=== PATIENT | female | born 1990 | race Caucasian/White ===

== ENCOUNTER 2018-04-30 20:49 | Emergency (ER) | payer SELFPAY ==
[2018-04-30] MEDS ORDERED: Sodium Chloride 0.9% 1,000 ML IV ONE (22:10)
--- NOTE | 2018-04-30 22:10 | C.PDOC ---
History Of Present Illness Patient presents to the ER with a complaint of suprapubic pain that began today. Patient is unsure if she has vaginal bleeding or hematuria. Denies fever , chills, nausea, or vomiting. Time Seen by Provider: 04/30/18 22:09 Chief Complaint (Nursing): Abdominal Pain History Per: Patient History/Exam Limitations: no limitations Onset/Duration Of Symptoms: Hrs Current Symptoms Are (Timing): Still Present Severity: Moderate Pain Scale Rating Of: 4 Location Of Pain/Discomfort: Suprapubic Quality Of Discomfort: Unable To Describe Associated Symptoms: Other (Vaginal bleeding vs hematuria). denies: Fever, Chills, Nausea, Vomiting Exacerbating Factors: None Alleviating Factors: None Recent travel outside of the [place]: No Past Medical History Reviewed: Historical Data, Nursing Documentation, Vital Signs Vital Signs: Last Vital Signs Temp 98.1 F 05/01/18 02:26 Pulse 83 05/01/18 02:26 Resp 20 05/01/18 02:26 BP 107/70 05/01/18 02:26 Pulse Ox 100 05/01/18 02:26 Family History: States: No Known Family Hx - Social History Hx Alcohol Use: No Hx Substance Use: No Review Of Systems Constitutional: Negative for: Fever, Chills Cardiovascular: Negative for: Palpitations, Light Headedness Respiratory: Negative for: Cough Gastrointestinal: Positive for: Abdominal Pain. Negative for: Nausea, Vomiting Genitourinary: Positive for: Other (Questionable vaginal bleeding vs hematuria) Physical Exam - Physical Exam Appears: Non-toxic Skin: Warm, Dry Head: Normacephalic Oral Mucosa: Moist Chest: Symmetrical, No Tenderness Cardiovascular: Rhythm Regular Respiratory: No Rales, No Rhonchi, No Wheezing Gastrointestinal/Abdominal: Soft, Tenderness (Suprapubic), No Guarding, No Rebound Neurological/Psych: Oriented x3 ED Course And Treatment - Laboratory Results Result Diagrams: 04/30/18 22:20 04/30/18 22:20 O2 Sat by Pulse Oximetry: 99 (room air) Pulse Ox Interpretation: Normal Progress Note: Blood work and urinalysis ordered. IV fluids administered. Reevaluation Time: 04:07 Reassessment Condition: Improved Disposition Counseled Patient/Family Regarding: Studies Performed, Diagnosis, Need For Followup - Disposition Referrals: [facility] [Outside] [facility] [Outside] Disposition: HOME/ ROUTINE Disposition Time: 22:10 Condition: FAIR Additional Instructions: Please follow up with your director of scientific research Instructions: Threatened Miscarriage (DC) Forms: [employer] (Estonian) - Clinical Impression Clinical Impression: Threatened - Scribe Statement The provider has reviewed the documentation as recorded by the Scribe Jevon Guevara All medical record entries made by the Namnaibe were at my direction and personally dictated by me. I have reviewed the chart and agree that the record accurately reflects my personal performance of the history, physical exam, medical decision making, and the department course for this patient. I have also personally directed, reviewed, and agree with the discharge instructions and disposition.
[2018-04-30 22:15] LABS: HCG,QUALITATIVE URINE POSITIVE (NEGATIVE); SQUAMOUS EPITHIAL 1 /hpf (0-5); URINE BACTERIA RARE (<OCC); URINE BILIRUBIN NEGATIVE (NEGATIVE); URINE BLOOD 1+ (NEGATIVE); URINE CLARITY Clear (Clear); URINE COLOR Straw (YELLOW); URINE GLUCOSE (UA) NORMAL (Normal); URINE LEUKOCYTE ESTERASE NEG Leu/uL (Negative); URINE PROTEIN NEGATIVE (NEGATIVE); URINE UROBILINOGEN NORMAL mg/dL (0.2-1.0)
[2018-04-30] MEDS ORDERED: Sodium Chloride 0.9% 1,000 ML ONE (22:21)
[2018-04-30 22:31] LABS: BASO % 0.6 % (0.0-2.0); EOS # 0.2 K/uL (0.0-0.7); EOS % 3.2 % (0.0-4.0); HEMOGLOBIN 11.4 g/dL (11.0-16.0); LYMPH # 2.7 K/uL (1.0-4.3); LYMPH % 34.2 % (20.0-40.0); MEAN CELL VOLUME 83.5 fL (81.0-99.0); MEAN CORPUSCULAR HEMOGLOBIN 27.1 pg (27.0-31.0); MEAN CORPUSCULAR HGB CONC 32.4 g/dL (33.0-37.0); MEAN PLATELET VOLUME 8.7 fL (7.2-11.7); MONO # 0.6 K/uL (0.0-0.8); MONO % 7.5 % (0.0-10.0); NEUT # 4.2 K/uL (1.8-7.0); NEUT % 54.5 % (50.0-75.0); NRBC % 0.1 % (0.0-2.0); RBC 4.21 Mil/uL (3.80-5.20); RED CELL DISTRIBUTION WIDTH 15.7 % (11.5-14.5); WHITE BLOOD COUNT 7.8 K/uL (4.8-10.8)
[2018-04-30 22:41] LABS: ALB/GLOB RATIO 1.3 (1.0-2.1); ALBUMIN 4.2 g/dL (3.5-5.0); ALT/SGPT 16 U/L (9-52); AST/SGOT 26 U/L (14-36); BLOOD UREA NITROGEN 6 mg/dL (7-17); CALCIUM 9.1 mg/dl (8.6-10.4); GFR AFRICAN-AMERICAN > 60; GFR NON-AFRICAN AMERICAN > 60
[2018-05-01 02:27] VITALS: TEMP 98.1
--- NOTE | 2018-05-01 04:08 | US ---
EXAM: US First Trimester, Transabdominal US , Transvaginal CLINICAL HISTORY: 28 years old, female; Pain; complicated by abdominal or pelvic pain; Lower; First trimester; Gestational age or lmp: 03/14/18; ; Additional info: Vag bleed, hcg 1600 TECHNIQUE: Real-time transabdominal and transvaginal obstetrical ultrasound of the maternal pelvis and a first trimester with image documentation. Transvaginal imaging was used for better evaluation of the fetus and adnexa. COMPARISON: No relevant prior studies available. FINDINGS: Gestation: Single live intrauterine gestation. heart rate of 123 beats per minute. Candy Kitchen-rump length of 0.2 cm, correlating with gestational age of 5 weeks 5 days. Uterus/cervix: No subchorionic hemorrhage. Closed cervix. Ovaries: RIGHT ovary: 2.2 x 2.0 x 2.2 cm anechoic lesion. LEFT ovary: Normal. No adnexal masses. Free fluid: Trace free fluid within pelvis. IMPRESSION: 1. Single live intrauterine gestation. 2. RIGHT ovarian cyst. THIS REPORT CONTAINS FINDINGS THAT MAY BE CRITICAL TO PATIENT CARE. The findings were verbally communicated via telephone conference with MAURILIO Livingston at 4:07 AM EDT on 05/01/2018. The findings were acknowledged and understood.
[2018-05-01 04:16] VITALS: BP 105/66; PULSE 76; RESP 18; O2SAT 97
== END 2018-05-01 04:16 | disposition home or self-care (01) ==
LOC: SUPCPDRO 20:49 → C.ER 20:49
DX: O20.0 Threatened abortion (principal)
CPT/HCPCS: 76805; 76817; 80053; 81001; 84702; 84703; 85025; 86850; 86900; 96360; 99285; J7030

== ENCOUNTER 2018-11-27 10:57 | Outpatient (CLI) | payer OTHER | END 2018-11-27 10:58 | disposition home or self-care (01) | LOC: C.LAB 10:57 ==

== ENCOUNTER 2019-01-29 12:50 | Outpatient (CLI) | payer OTHER | END 2019-01-29 12:51 | disposition home or self-care (01) | LOC: C.LAB 12:50 | DX: O09.33 Supervision of pregnancy with insufficient antenatal care, third trimester (principal) ==

== ENCOUNTER 2019-03-10 10:26 | Emergency (ER) | payer OTHER ==
--- NOTE | 2019-03-10 13:21 | OBHP ---
Datetime: 03/10/2019 11:50 IP Adm Impression: Term, intrauterine IP Admit Plan: Discharge home Admit Comment, IP Provider: 28 year old at 40.0 weeks by US with SAMANTHA 03/10/19, today, present s to the OB ED with increased back pain worsening the past 4 days. Patient also had abdominal pain wi th it which has resolved. Patient states she is uncomfortable lying down in bed. She has not taken an y medications to relieve pain. The back pain is non radiating and local, which is relieved with posit ional changes. Patient has had lower abdominal pain as if someone was squeezing her belly once or twi ce an hour but not today. She feels that her lower abdomen is "heavy." Patient endorses a gradual los s of whitish discharge yesterday, though the volume is nothing out of the ordinary. She denies fluid loss, vaginal bleeding. She endorses movement. This is patient's first full term and she is unsure of the feeling of contractions though it can be the the belly squeezing mentioned earli er. Denies headaches, fever, chills, sweats, nausea, vomiting, diarrhea, constipation, dysuria. Last BM was yesterday and was uneventful. Patient had a private doctor (Dr. Ruiz) during her first part of and switched to [facility] around 30 weeks. She now sees Dr. Michelle. Last visit was 03/05. She has another visit on 03/12. OB hx: spontaneous miscarriage April 2018 at 5-6 weeks. Patient passed some clots and eventually gomes d to do a D_C. This has been uneventful other than GBS+ (per chart). Gender unknown; patien t states it will be a surprise. 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 Menses every month for 5 days. Denies hx of STIs and fibroids. Unsure of Pap smear history. LMP 06/04/18. PMHx: denies PSHx: other than D_C mentioned above, nothing else SocHx: Denies tobacco, EtOH and illicit drug use. Patient is a vegetarian. Medications: Iron PO, PNV Allergies: NKDA Vitals and PE: see above A/P: 28 year old at 40.0 weeks by US with SAMANTHA 03/10/19, today, presents to the OB ED with increa sed back pain worsening the past 4 days. -patient not in active labor: cervix closed, thick, posterior -NST reassuring -confirmed head down with bedside US -discharged home with labor precautions. If no acute events, patient is to return here for her christian eduled induction on 03/17. -also encouraged routine OB follow up schedule appt with Dr. Michelle on 03/[address] Liza Daniel PGY1 obh addendum pt seen _ examined by me w/ dr daniel. agree w/ above note. she denies decreased fm, reg ctxs, srom, bleeding, h/a, scotomata or ruq pain. p: labor precautions. kick counts. f/u in ob appt as sched'd. Pelvic Type - PN: Adequate Extremities - PN: Normal Abdomen - PN: Normal Back - PN: Normal Breast - PN: Not Done Lungs - PN: Normal Heart - PN: Normal Thyroid - PN: Not Done Neurologic - PN: Normal HEENT - PN: Normal General - PN: Normal Presentation-Admit: Vertex FHR - Baseline A Provider: 140 Membranes, Provider: Intact Contraction Comments Provider: irreg, mild Comments, ACOG Physical Exam: -lower extremities: 1+ pitting tibial edema LEGAL ARCHIVIST: -cervix closed, thick, posterior. A moderate amount of creamy white discharge pooling on speculum exam. addendum above via bedside us; SSE: no amniotic fluid in cul de sac w/ and w/out valsalva bedside us: ceph present Pool Provider: Negative Nitrazine Provider: Negative EGA AdmitDate IP: 40.0 Vital Signs Provider: Reviewed; Within Normal Limits IP Chief Complaint: Maternal discomfort NICHD Variability Prov Fetus A: Moderate 6-25bpm NICHD Accel Fetus A IP Provider: [id number] FHR Category Provider Fetus A: Category I NICHD Decel Fetus A IP Provider: None Dilatation, Provider: 0 Effacement, Provider: 0 Station, Provider: -3 Genitourinary Exam: Normal
[2019-03-10 16:02] VITALS: BP 127/76; PULSE 84; TEMP 98.4
== END 2019-03-10 11:50 | disposition home or self-care (01) ==
LOC: C.EROB 10:26
DX: O26.893 Other specified pregnancy related conditions, third trimester (principal); M54.9 Dorsalgia, unspecified; Z3A.40 40 weeks gestation of pregnancy

== ENCOUNTER 2019-03-13 03:20 | Inpatient (IN) | payer SELFPAY, OTHER | END 2019-03-16 14:20 | disposition home or self-care (01) | LOC: C.4M 03-14 00:20 → C.EROB 03:20 → C.4D 04:00 ==

== ENCOUNTER 2019-03-20 09:04 | Emergency (ER) | payer SELFPAY ==
[2019-03-20 09:04] VITALS: BMI 29.7
[2019-03-20] MEDS ORDERED: Sodium Chloride 0.9% 1,000 ML IV ONE ×2 (09:31→11:25)
[2019-03-20] MEDS ORDERED: Sodium Chloride 0.9% 1,000 ML ONE ×2 (09:42→11:25)
--- NOTE | 2019-03-20 09:42 | C.PDOC ---
History Of Present Illness 28 y/o female presents to ED with a headache in occipital area, worse when sitting up. States the headache started yesterday. She denies fever, nausea, vomiting, dizziness, or other complaints. Patient had a a week ago her e at [facility], was given spinal anesthesia. Time Seen by Provider: 03/20/19 09:18 Chief Complaint (Nursing): Headache History Per: Patient History/Exam Limitations: no limitations Onset/Duration Of Symptoms: Days Current Symptoms Are (Timing): Still Present Past Medical History Reviewed: Historical Data, Nursing Documentation, Vital Signs Vital Signs: Last Vital Signs Temp 98.5 F 03/20/19 09:06 Pulse 112 H 03/20/19 09:25 Resp 18 03/20/19 09:25 BP 135/88 03/20/19 09:25 Pulse Ox 100 03/20/19 09:25 - [facility] Procedures EXTRACTION OF POC, LOW CERVICAL, OPEN APPROACH (03/13/19) INTRODUCTION OF OTH HORMONE INTO PERIPH VEIN, PERC APPROACH (03/13/19) Family History: States: No Known Family Hx - Social History Hx Alcohol Use: No Hx Substance Use: No - Immunization History Hx Tetanus Toxoid Vaccination: No Hx Influenza Vaccination: Yes Hx Pneumococcal Vaccination: No Review Of Systems Except As Marked, All Systems Reviewed And Found Negative. Constitutional: Negative for: Fever, Chills Gastrointestinal: Negative for: Nausea, Vomiting Neurological: Positive for: Headache. Negative for: Dizziness Physical Exam - Physical Exam Appears: Non-toxic, No Acute Distress Skin: Warm, Dry Head: Atraumatic, Normacephalic Eye(s): bilateral: Normal Inspection Oral Mucosa: Moist Neck: Supple Cardiovascular: Rhythm Regular, No Murmur Respiratory: Normal Breath Sounds, No Rales, No Rhonchi, No Wheezing Gastrointestinal/Abdominal: Soft, No Tenderness, Other (has abdominal binder from , no bleeding) Extremity: Bilateral: Atraumatic, Normal ROM Neurological/Psych: Oriented x3, Normal Speech ED Course And Treatment - Laboratory Results Result Diagrams: 03/20/19 10:04 03/20/19 10:04 Lab Interpretation: No Acute Changes O2 Sat by Pulse Oximetry: 100 (RA) Pulse Ox Interpretation: Normal Progress Note: Treated with IVF NSS x 2 liters, toradol and reglan. On re- evaluation feeling better, neuro intact, ambulating with steady gait Reassessment Condition: Improved Medical Decision Making Medical Decision Making: Plan: --Labs --IV fluids 1L --Reglan 10 mg IV --UA Disposition Counseled Patient/Family Regarding: Studies Performed, Diagnosis, Need For Followup - Disposition Referrals: [facility] [Outside] [facility] [Outside] Disposition: HOME/ ROUTINE Disposition Time: 12:00 Condition: IMPROVED Instructions: Headache, Adult (DC) Forms: [employer] (Romanian) - POA Present On Arrival: None - Clinical Impression Clinical Impression: Headache - 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 - Scribe Statement The provider has reviewed the documentation as recorded by the Scribenrique Walter All medical record entries made by the Namanibenrique were at my direction and personally dictated by me. I have reviewed the chart and agree that the record accurately reflects my personal performance of the history, physical exam, medical decision making, and the department course for this patient. I have also personally directed, reviewed, and agree with the discharge instructions and disposition.
[2019-03-20 10:09] LABS: BASO % 0.4 % (0.0-2.0); EOS # 0.2 K/uL (0.0-0.7); LYMPH # 1.5 K/uL (1.0-4.3); LYMPH % 13.2 % (20.0-40.0); MEAN CELL VOLUME 95.4 fL (81.0-99.0); MEAN CORPUSCULAR HEMOGLOBIN 31.4 pg (27.0-31.0); MEAN CORPUSCULAR HGB CONC 32.9 g/dL (33.0-37.0); MEAN PLATELET VOLUME 7.7 fL (7.2-11.7); MONO # 0.9 K/uL (0.0-0.8); MONO % 7.6 % (0.0-10.0); NEUT # 8.6 K/uL (1.8-7.0); NEUT % 76.8 % (50.0-75.0); RBC 4.23 Mil/uL (3.80-5.20); RED CELL DISTRIBUTION WIDTH 14.2 % (11.5-14.5); WHITE BLOOD COUNT 11.2 K/uL (4.8-10.8)
[2019-03-20 10:17] LABS: HEMOGLOBIN 13.3 g/dL (11.0-16.0)
[2019-03-20 10:30] LABS: ALB/GLOB RATIO 1.2 (1.0-2.1); ALBUMIN 3.7 g/dL (3.5-5.0); ALT/SGPT 19 U/L (9-52); AST/SGOT 34 U/L (14-36); BLOOD UREA NITROGEN 9 mg/dL (7-17); GFR NON-AFRICAN AMERICAN > 60
[2019-03-20 11:23] LABS: SQUAMOUS EPITHIAL 6 /hpf (0-5); URINE BILIRUBIN NEGATIVE (NEGATIVE); URINE BLOOD 3+ (NEGATIVE); URINE CLARITY Hazy (Clear); URINE COLOR Yellow (YELLOW); URINE GLUCOSE (UA) NORMAL (Normal); URINE LEUKOCYTE ESTERASE 2+ Leu/uL (Negative); URINE PROTEIN NEGATIVE (NEGATIVE); URINE UROBILINOGEN NORMAL mg/dL (0.2-1.0)
[2019-03-20 12:40] VITALS: BP 133/72; PULSE 74; RESP 18; TEMP 98.6
[2019-03-20 15:49] VITALS: O2SAT 100
== END 2019-03-20 12:51 | disposition home or self-care (01) ==
LOC: C.ER 09:04
DX: R51 Headache (principal)
CPT/HCPCS: 80053; 81001; 83735; 85025; 87086; 96361; 96374; 96375; 99285; J1885; J2765; J7030